=== PATIENT | male | born 1960 | race Caucasian/White ===

== ENCOUNTER → 2016-10-01 | Day surgery (SDC) | payer OTHER ==
[~2016-10-01] VITALS: Ht 189.2 cm; Wt 121.2 kg
[~2016-10-01] MED LIST: *ONDANSETRON 4 MG VIAL PERIprocedural Use ONLY ONE; *morphine SULFATE 8 MG/ML PERIprocedure ONLY ONE; ACETAMINOPHEN 1000 MG/100 ML VIAL IV SCH; ALPR.25 PO; ASPI81CH CHEW; BUPIVACAINE/EPINEPHRINE 0.5% PF 30 ML VIAL ONE; CHLORHEXIDINE GLUCONATE 2 % 1 PACK (2 CLOTHS) TOPICAL PRN; DO NOT ADM ANY ANTICOAGULANT DRUGS PRN; FAMOTIDINE 20 MG/2 ML VIAL ONE; INSULIN HUMAN REGULAR 1,000 UNITS/10 ML VIAL SQ PRN; LACTATED RINGER'S 1000 ML INJ 1,000 ML IV ONE; LACTATED RINGER'S 1000 ML IV PRN; METO25TA3 PO; METOPROLOL TARTRATE 25 MG TAB PO PRN; MIDAZOLAM HCL 2 MG/2 ML VIAL ONE; MORPHINE SULFATE 4 MG/ML INJ IV PRN; NEOSTIGMINE 3 MG/3 ML SYR IV ONE; ONDANSETRON HCL 4 MG/2 ML VIAL IV PRN; ONDANSETRON HCL 4 MG/2 ML VIAL IV PUSH ONE; PLAV75TA29 PO; PROPOFOL 200 MG/20 ML AMP IV ONE; ROSU40 PO; SODIUM CHLORID 0.9% 500 ML IV PRN; SODIUM CHLORIDE 0.9% FLUSH 10 ML FLUSH IV FLUSH PRN; SODIUM CHLORIDE 0.9% FLUSH 10 ML FLUSH IV FLUSH SCH; TRIA1SPR5 EACH NARE; VANCOMYCIN 500 MG/NS 100 ML IV ONE; ZANT150T2 PO; ePHEDrine/NS 25 MG/5 ML SYR IV ONE; fentaNYL CITRATE 250 MCG/5 ML AMP ONE; oxyCODONE/ACETAMINOPHEN 5 MG/325 MG TAB PO PRN
[2016-10-01 07:32] VITALS: BP 116/70; PULSE 64; RESP 20; TEMP 97.6; O2SAT 94
--- NOTE | 2016-10-01 10:45 | PD.OP ---
cc: Bashir Ramírez MD Operative Report Date of Surgery: Oct 01, 2016 Preoperative Diagnosis: Chronic cholecystitis and cholelithiasis Postoperative Diagnosis: Chronic cholecystitis and cholelithiasis Procedure: Laparoscopic cholecystectomy Anesthesia: Gen. endotracheal Surgeon: Bashir Ramírez Learning Engineer(s): PATRIA Wray Operation and Findings: Operative findings: The patient was found to have a very diseased, thick-walled gallbladder with small dark stones within its lumen. It was densely adherent to the gallbladder. There were filmy adhesions along its entire length. The cystic duct, and common bile duct were seen to be normal caliber. No other abnormalities were noted. Operative procedure: Patient was brought to the operating room and after satisfactory general endotracheal anesthesia was obtained, the abdomen was prepped and draped in the usual sterile fashion. 0.5% Marcaine with epinephrine was used to infiltrate the skin for local anesthesia. A small incision was made above the umbilicus and a 5 mm trocar was inserted into the peritoneal cavity under direct visualization. The abdomen was distended to 15 mmHg using carbon dioxide, after which the camera was reinserted and visceral injury inspected for, with none being identified. Under direct visualization a 12 port and a 5 port placed in the upper midline. The fundus of the gallbladder was identified and grasped. It was quite dense due to inflammation and bile. It was drained of approximately 20 mL's of relatively normal- appearing bile to allow better grasping. Once the gallbladder was grasped and was retracted superiorly over the right lobe of the liver. The adhesions were taken down without problem by just gentle traction. Abel's pouch was then grasped and retracted inferiorly and laterally, placing tension on the hepatoduodenal ligament. The cystic duct and cystic artery were then both dissected free to obtain the critical view. Once a critical view been obtained the cystic duct was controlled with 2 hemoclips and then divided near structures with the gallbladder using Harmonic scalpel. The cystic artery was via with a Harmonic scalpel. The gallbladder was then dissected free from the liver bed using the harmonic scalpel. Was placed within an Endo Catch bag and brought through the upper midline incision without problem where it was then sent for permanent pathology. Hemostasis was strictly assured. The area was irrigated thoroughly with saline and hemostasis again checked for and found be satisfactory. Due to the patient being on Plavix immediately postop, a use of Surgicel was placed within the gallbladder fossa and tucked into assure continued hemostasis. The carbon dioxide was then vented as completely as possible the atmosphere after checking the cystic duct cystic artery sites which were seen to be intact with no leakage of bile or blood. The trochars were were withdrawn. The 12 mm fascial defect closed with interrupted 0 Vicryl sutures and the skin closed with interrupted 4-0 PDS subcutaneous tumor stitches. Steri-Strips were applied the patient then awakened and taken from the operating room, in satisfactory condition, having tolerated procedure without problem. Estimated blood loss was less than 25 mL's. Instrument, sponge, and needle counts were reported as being correct 2 at the end of procedure. Bashir Ramírez MD Oct 01, 2016 10:45
[2016-10-01 12:15] VITALS: BP 142/78; PULSE 64; RESP 18; TEMP 97.6; O2SAT 95
== END | disposition home or self-care (01) ==
LOC: HSDC 06:44
PROVIDERS: ATTEND Surgery
DX: K80.10 Calculus of gallbladder with chronic cholecystitis without obstruction (principal); I25.10 Atherosclerotic heart disease of native coronary artery without angina pectoris; J44.9 Chronic obstructive pulmonary disease, unspecified; K21.9 Gastro-esophageal reflux disease without esophagitis; I10 Essential (primary) hypertension; E78.5 Hyperlipidemia, unspecified; I25.2 Old myocardial infarction; E66.9 Obesity, unspecified; Z68.33 Body mass index [BMI] 33.0-33.9, adult; Z95.5 Presence of coronary angioplasty implant and graft; Z79.82 Long term (current) use of aspirin; Z79.02 Long term (current) use of antithrombotics/antiplatelets; Z88.0 Allergy status to penicillin; Z88.1 Allergy status to other antibiotic agents; Z91.041 Radiographic dye allergy status; Z88.5 Allergy status to narcotic agent; Z95.1 Presence of aortocoronary bypass graft
CPT/HCPCS: 47562; 88304; J0131; J2250; J2270; J2405; J2710; J3010; J3370; J7120

== ENCOUNTER 2018-06-18 07:41 | Observation (INO) ==
[2018-06-18 07:46] VITALS: TEMP 98.4
[2018-06-18 08:20] LABS: Eos # (Auto) 0.1 th/mm3 (0.0-0.4); Eos % (Auto) 2.5 % (0.0-4.0); Hematocrit 45.4 % (39.0-51.0); Hemoglobin 15.5 gm/dL (13.0-17.0); Lymph # (Auto) 1.1 th/mm3 (1.0-4.8); Lymph % (Auto) 22.6 % (9.0-44.0); Mean Corpuscular HGB Conc 34.1 % (32.0-36.0); Mean Corpuscular Hemoglobin 30.8 pg (27.0-34.0); Mean Corpuscular Volume 90.3 fL (80.0-100.0); Mean Platelet Volume 6.7 fL (7.0-11.0); Mono # (Auto) 0.5 th/mm3 (0.0-0.9); Mono % (Auto) 11.2 % (0.0-8.0); Neut % (Auto) 62.7 % (16.0-70.0); Platelet Count 213 th/mm3 (150-450); Red Blood Count 5.03 mil/mm3 (4.50-5.90); Red Cell Distribution Width 13.6 % (11.6-17.2); White Blood Count 4.7 th/mm3 (4.0-11.0)
[2018-06-18 08:27] LABS: Prothrombin Time 10.1 sec (9.8-11.6)
[2018-06-18 08:31] LABS: Alanine Aminotransferase 34 U/L (12-78); Albumin 3.6 g/dL (3.4-5.0); Anion Gap 9 meq/L (5-15); Aspartate Aminotransferase 22 U/L (15-37); Blood Urea Nitrogen 15 mg/dL (7-18); Calcium 8.3 mg/dL (8.5-10.1); Chloride 110 meq/L (98-107); Glomerular Filtration Rate 88 mL/min (>89); Glucose,Random 102 mg/dL (74-106); Potassium 4.1 meq/L (3.5-5.1); Sodium 142 meq/L (136-145)
[2018-06-18 08:35] LABS: Alkaline Phosphatase 59 U/L (45-117); Total Protein 7.3 g/dL (6.4-8.2); Troponin I 0.03 ng/mL (0.02-0.05)
[2018-06-18 08:38] LABS: Creatine Kinase 99 U/L (39-308)
--- NOTE | 2018-06-18 08:54 | ED ---
HPI General Chief Complaint: Chest Pain Stated Complaint: Chest Pain Time Seen by Provider: 06/18/18 08:46 Source: patient Mode of arrival: ambulatory Limitations: no limitations History of Present Illness MD complaint: Reports chest pain STEMI Alert: No Onset (ago): week(s) (1) Duration: constant Pain location: Reports substernal Severity scale (1-10): 3 Quality: Reports similar to prior NM and other Pain radiation: Reports none Relieving factors: nothing Exacerbating factors: exertion Context: Reports other (Extensive cardiac history including a previous CABG followed by a stent.) Associated symptoms: Reports nausea and dyspnea Treatments prior to arrival chest pain: Reports aspirin Related Data Allergies Allergy/AdvReac Type Severity Reaction Status Date / Time azithromycin Allergy Severe RASH Unverified 12/10/16 17:44 codeine Allergy Severe TACHYCARDIA Unverified 12/10/16 17:44 erythromycin base Allergy Severe RASH Unverified 12/10/16 17:44 iodine Allergy Severe RASH Unverified 12/10/16 17:44 penicillin G Allergy Severe Anaphylaxis Unverified 12/10/16 17:44 potassium iodide Allergy Severe RASH Unverified 12/10/16 17:44 povidone-iodine Allergy Severe RASH Unverified 12/10/16 17:44 sodium iodide Allergy Severe RASH Unverified 12/10/16 17:44 sodium iodide Allergy Severe RASH Unverified 12/10/16 17:44 *MDRO Multi-Drug Resistant AdvReac Unknown MRSA Uncoded 10/01/16 07:08 Organism Review of Systems ROS: all other systems reviewed are negative [facility] Medical History Medical History Anxiety (Acute) CAD (coronary artery disease) (Acute) GERD (gastroesophageal reflux disease) (Acute) Hyperlipidemia (Acute) Surgical History Surgical History Hx of CABG (Acute) Social History Social History Substance History: No History of Abuse Smoking Status: Never smoker How Often Do You Have a Drink Containing Alcohol: Never Recent Travel in [facility] within the Last 8 Weeks: No Recent Out of Country Travel within the Last 8 Weeks: No Exam Const General: cooperative, healthy appearing and comfortable Orientation: alert, awake and oriented x3 HENMT Head: normal to inspection, normocephalic and atraumatic Eyes General: appearance normal, both eyes and all related structures Conjunctivae: conjunctivae normal Sclera: sclerae normal EOM: EOM intact bilaterally Neck Neck: normal visual inspection and full ROM Chest Chest: normal inspection of the chest Resp Effort & Inspection: normal respiratory effort and able to speak in complete sentences Auscultation: clear to auscultation bilaterally Cardio Rate: regular rate Rhythm: regular rhythm Heart Sounds: S1 normal and S2 normal GI Inspection: normal to inspection Palpation: soft Back/Spine/Pelvis Cervical Spine: cervical ROM normal Thoracic/Lumbar Spine: thoraco-lumbar ROM normal Skin General: no rashes or lesions noted, turgor normal and dry skin Neuro General: alert, awake, oriented x3, moves all extremities and CN's II-XI intact bilaterally Extrem General: normal to inspection, full ROM and no pedal edema Psych Appearance: grossly normal Mental Status: mental status grossly normal Speech and Movement: speech and movement normal Mood: congruent mood Affect: normal affect Attitude: cooperative Thought Process: normal Thought Content: normal Judgment: judgment good Course Initial Documented Vital Signs Temperature 98.4 F 06/18/18 07:44 Pulse Rate 71 06/18/18 07:44 Respiratory Rate 16 06/18/18 07:44 Blood Pressure 141/76 H 06/18/18 07:44 Pulse Oximetry 96 06/18/18 07:44 Last Documented Vital Signs Temperature 98.4 F 06/18/18 07:44 Pulse Rate 71 06/18/18 07:44 Respiratory Rate 16 06/18/18 07:44 Blood Pressure 141/76 H 06/18/18 07:44 Pulse Oximetry 96 06/18/18 07:44 Medical Decision Making [facility] Narrative Medical decision making narrative: This patient presents with a one-week history of substernal chest pain which is exacerbated by exertion. It is occasionally associated with shortness of breath and nausea. He reports an extensive cardiac history including a previous CABG and a previous stent. He states that the chest pain that he is having now is similar to the chest pain that he had prior to stenting. In addition, he reports occasional choking sensations. The patient will be admitted to the chest pain center for further evaluation and treatment. Medical Screen Exam Complete: Yes Emergency Medical Condition: Yes Differential Diagnosis Differential Diagnosis: Differential diagnosis of chest pain includes but is not limited to musculoskeletal pain, pulmonary embolism, acute coronary syndrome , pneumonia, pleurisy Lab Data Lab results reviewed: Yes I reviewed the patient's lab results. Result diagrams: 06/18/18 08:02 06/18/18 08:02 Lab Results 06/18/18 06/18/18 06/18/18 Range/Units 08:02 08:02 08:02 WBC 4.7 (4.0-11.0) th/mm3 RBC 5.03 (4.50-5.90) mil/mm3 Hgb 15.5 (13.0-17.0) gm/dL Hct 45.4 (39.0-51.0) % MCV 90.3 (80.0-100.0) fL MCH 30.8 (27.0-34.0) pg MCHC 34.1 (32.0-36.0) % RDW 13.6 (11.6-17.2) % Plt Count 213 (150-450) th/mm3 MPV 6.7 L (7.0-11.0) fL Neut % (Auto) 62.7 (16.0-70.0) % Lymph % (Auto) 22.6 (9.0-44.0) % Villalba % (Auto) 11.2 H (0.0-8.0) % Eos % (Auto) 2.5 (0.0-4.0) % Baso % (Auto) 1.0 (0.0-2.0) % Neut # (Auto) 3.0 (1.8-7.7) th/mm3 Lymph # (Auto) 1.1 (1.0-4.8) th/mm3 Villalba # (Auto) 0.5 (0.0-0.9) th/mm3 Eos # (Auto) 0.1 (0.0-0.4) th/mm3 Baso # (Auto) 0.0 (0.0-0.2) th/mm3 WBC Differential . Differential Comment Auto diff final PT 10.1 (9.8-11.6) sec INR 1.0 Ratio APTT 27.0 (23.4-31.7) sec Sodium 142 (136-145) meq/L Potassium 4.1 (3.5-5.1) meq/L Chloride 110 H (98-107) meq/L Carbon Dioxide 23.0 (21.0-32.0) meq/L Anion Gap 9 (5-15) meq/L BUN 15 (7-18) mg/dL Creatinine 0.89 (0.60-1.30) mg/dL Estimated GFR 88 L (>89) mL/min Random Glucose 102 (74-106) mg/dL Calcium 8.3 L (8.5-10.1) mg/dL Total Bilirubin 0.5 (0.2-1.0) mg/dL AST 22 (15-37) U/L ALT 34 (12-78) U/L Alkaline Phosphatase 59 (45-117) U/L Total Creatine Kinase 99 (39-308) U/L Troponin I 0.03 (0.02-0.05) ng/mL Total Protein 7.3 (6.4-8.2) g/dL Albumin 3.6 (3.4-5.0) g/dL Imaging Data Radiologist's impression: Chest X-Ray 06/18/18 08:59 CONCLUSION: Status post CABG. Lungs remain clear. ECG Data EKG Prior to Arrival: No Attestation: I personally reviewed and interpreted this ECG as follows: (EKG shows a sinus rhythm. No acute STT wave changes. Multiple unifocal PVCs. Inferior Q waves compatible with previous NM.) Discharge Plan Discharge Disposition Patient Disposition: ED Admit(ED Internal Use Only) Discharge Order Discharge Orders: ED Use Only Admit Order (Routine); Ordered 06/18/18 Ordered By: Fernanda Lira Discharge Details Diagnosis: Chest pain Physicians Team ED Provider: Fernanda Lira Primary Care Provider: Sergio Barrientos Attending Provider: Shravan Solis Status ED Status: Admitted Observation Patient
--- NOTE | 2018-06-18 09:23 | XR ---
EXAM DATE: 06/18/2018 9:15 AM EST AGE/SEX: 57 years / Male INDICATIONS: . Shortness of breath and burning in chest. CLINICAL DATA: This is the patient's initial encounter. Patient reports that signs and symptoms have been present for 1 week and indicates a pain score of 3/10. MEDICAL/SURGICAL HISTORY: None. Appendectomy. Cholecystectomy. CABG. Heart stent. COMPARISON: [facility] [place] 2V PA&LAT, 11/07/2017. . FINDINGS: AP and lateral views of the chest demonstrate the lungs to be symmetrically aerated without evidence of mass, infiltrate or effusion. Status post CABG. The cardiomediastinal contours are unremarkable. Osseous structures are intact. CONCLUSION: Status post CABG. Lungs remain clear. Electronically signed by: Raymond Dwyer MD Board Certified Radiologist 06/18/2018 9:22 AM EST
--- NOTE | 2018-06-18 12:14 | P.HPCA ---
History of Present Illness Primary Care Physician: Sergio Barrientos MD Chief Complaint: Chest pain History of Present Illness: This is a 57-year-old male history of CAD having a four-vessel bypass in 2001 and a stent to vein graft to diagonal in 2016, hypertension, and hyperlipidemia that presents to ED via private vehicle with complaint of intermittent chest discomforts for the past week. States he has been having them at least once a day. States they have occurred always with activity until this morning which was the first episode that occurred while essentially at rest. He was getting ready for work. Prior to that with basically walking he would develop a burning discomfort in the substernal region. He would stop walking and the discomfort would resolve within a couple minutes. On some occasions when he was start walking again the discomfort would recur and follow the same cycle. He was short of breath with the symptoms. Rarely was nauseous. Denied diaphoresis. He states he had a similar type of burning discomfort when needing stents in 2016 however that was higher in left side of his chest. He states he continues to follow Dr. Diaz. Last seen over the summer. States he was being seen for fast heart rate and wore a Holter monitor with Dr. Annalisa Gilliland 's office that revealed what he believes was atrial fibrillation was placed on metoprolol. No states he had a stress test on a treadmill and that was okay. Denies recent illness. Denies fevers or chills. Currently has no discomfort in his chest. Past medical history: CAD four-vessel bypass 2001 and stent to the vein graft to the diagonal as a non-STEMI in August 2015. Hypertension and hyperlipidemia. Denies diabetes. Family history: There is multiple family members with CAD. Social history: Non-smoker. Denies alcohol or illicit drug use. He is a technology lab teacher. - Diagnosis (1) Chest pain (2) CAD (coronary artery disease) (3) History of heart artery stent (4) Status post aorto-coronary artery bypass graft (5) Hypertension (6) Hyperlipidemia Review of Systems General: Patient denies fevers, chills, and recent travel. HEENT: Patient denies headache, sore throat, difficulty swallowing. Cardiovascular: Has the chest discomfort as mentioned above. Denies sensation of heart beating rapidly or irregularly. No syncope. Denies diaphoresis. Respiratory: He was short of breath. Denies inspirational chest discomfort. Denies coughing wheezing or hemoptysis. GI: Patient denies nausea, vomiting, diarrhea, abdominal pain, bloody stools. Musculoskeletal: Patient denies joint pain or edema. Denies calf pain or edema. Neurovascular: Patient denies numbness, tingling, weakness in extremities. Denies headache. Endocrine: Denies polyuria and polydipsia. Hematologic: Denies easy bruising. Skin: Denies rash or itching. PMFSH - History History Provided By: Patient - Medical History Medical History: Medical History (Last Updated 06/18/18 @ 10:37 by [employer]) High cholesterol Kidney stones Anxiety CAD (coronary artery disease) GERD (gastroesophageal reflux disease) Hyperlipidemia - Surgical History Surgical History: Surgical History (Last Updated 06/18/18 @ 10:37 by [employer]) Hx of hernia repair S/P CABG x 4 Stented coronary artery Hx of CABG - Tobacco History Second Hand Smoke Exposure: No Tobacco Use In Past 30 Days: No Smoking Status: Former smoker Tobacco Type: Cigars - Alcohol History How Often Do You Have a Drink Containing Alcohol: Monthly or less - Substance Use History Substance History: Unable to Obtain - Travel History Recent Travel in the [place] Within the Last 8 Weeks: No Recent Travel Out of the Country Within the Last 8 Weeks: No - Immunization History Tetanus Immunization: Unable to Assess Medications and Allergies Active Medications: Active Medications Aspirin (Aspirin) 325 mg PO DAILY TONI Sodium Chloride (Ns Flush) 2 ml IV.FLUSH BID TONI Sodium Chloride (Ns Flush) 2 ml IV.FLUSH PRN PRN PRN Reason: FLUSH AFTER USING IV ACCESS Allergies Allergy/AdvReac Type Severity Reaction Status Date / Time azithromycin Allergy Severe RASH Verified 06/18/18 11:20 codeine Allergy Severe TACHYCARDIA Verified 06/18/18 11:20 erythromycin base Allergy Severe RASH Verified 06/18/18 11:20 iodine Allergy Severe RASH Verified 06/18/18 11:20 penicillin G Allergy Severe Anaphylaxis Verified 06/18/18 11:20 potassium iodide Allergy Severe RASH Verified 06/18/18 11:20 povidone-iodine Allergy Severe RASH Verified 06/18/18 11:20 sodium iodide Allergy Severe RASH Verified 06/18/18 11:20 sodium iodide Allergy Severe RASH Verified 06/18/18 11:20 *MDRO Multi-Drug Resistant AdvReac Unknown MRSA Uncoded 06/18/18 11:20 Organism Home Medications Medication Instructions Recorded Confirmed Type alprazolam [Xanax] 0.5 mg PO BID 06/18/18 06/18/18 History clopidogrel [Plavix] 75 mg PO DAILY 06/18/18 06/18/18 History metoprolol tartrate 25 mg PO DAILY 06/18/18 06/18/18 History ranitidine HCl [Zantac] 150 mg PO BID 06/18/18 06/18/18 History rosuvastatin [Crestor] 40 mg PO HS 06/18/18 06/18/18 History Exam Vital signs: Vital Signs 06/18/18 07:44 06/18/18 10:15 06/18/18 11:48 Temperature 98.4 F Pulse Rate 71 54 L Respiratory Rate 16 19 Blood Pressure 141/76 H 124/68 Pulse Oximetry 96 98 98 Intake & Output 06/17/18 06/18/18 06/18/18 18:59 06:59 18:59 Weight 122.47 kg Narrative: GENERAL: This is a well-nourished, well-developed patient, in no apparent distress. Patient speaks in clear complete sentences. Patient is pleasant. HEENT: Head is atraumatic and normocephalic. Neck is supple without lymphadenopathy and trachea is midline. No JVD or carotid bruits. CARDIOVASCULAR: Regular rate and rhythm without murmurs, gallops, or rubs. RESPIRATORY: Clear to auscultation. Breath sounds equal bilaterally. No wheezes , rales, or rhonchi. Chest wall is nontender. No use of accessory muscles. GASTROINTESTINAL: Abdomen is nontender, nondistended. Abdomen soft. No obvious pulsatile mass or bruit. No CVA tenderness. Strong femoral pulses bilaterally. Normal bowel sounds in all quadrants. MUSCULOSKELETAL: Patient is moving upper and lower extremities freely. No calf tenderness or edema, no Homans sign. Strong pulses in upper and lower extremities. NEUROLOGICAL: Patient is alert and oriented. Cranial nerves 2-12 are grossly intact. No focal deficits and speech is clear. SKIN: No rash and turgor is normal. Results 06/18/18 08:02 06/18/18 08:02 Cardiac Enzymes 06/18/18 Range/Units 08:02 AST 22 (15-37) U/L Troponin I 0.03 (0.02-0.05) ng/mL Coagulation 06/18/18 Range/Units 08:02 PT 10.1 (9.8-11.6) sec APTT 27.0 (23.4-31.7) sec CBC 06/18/18 Range/Units 08:02 WBC 4.7 (4.0-11.0) th/mm3 RBC 5.03 (4.50-5.90) mil/mm3 Hgb 15.5 (13.0-17.0) gm/dL Hct 45.4 (39.0-51.0) % Plt Count 213 (150-450) th/mm3 Neut # (Auto) 3.0 (1.8-7.7) th/mm3 Lymph # (Auto) 1.1 (1.0-4.8) th/mm3 Simpson # (Auto) 0.5 (0.0-0.9) th/mm3 Eos # (Auto) 0.1 (0.0-0.4) th/mm3 Baso # (Auto) 0.0 (0.0-0.2) th/mm3 Comprehensive Metabolic Panel 06/18/18 Range/Units 08:02 Sodium 142 (136-145) meq/L Potassium 4.1 (3.5-5.1) meq/L Chloride 110 H (98-107) meq/L Carbon Dioxide 23.0 (21.0-32.0) meq/L BUN 15 (7-18) mg/dL Creatinine 0.89 (0.60-1.30) mg/dL Calcium 8.3 L (8.5-10.1) mg/dL AST 22 (15-37) U/L ALT 34 (12-78) U/L Alkaline Phosphatase 59 (45-117) U/L Total Protein 7.3 (6.4-8.2) g/dL Albumin 3.6 (3.4-5.0) g/dL Intake and Output 06/17/18 06/18/18 06/18/18 22:59 06:59 14:59 Other: Weight 122.47 kg Patient Weight 06/19/18 06:59 Weight 122.47 kg - Imaging and Cardiology Imaging: Impressions Chest X-Ray 06/18/18 08:59 CONCLUSION: Status post CABG. Lungs remain clear. EKG interpretations - EKG EKG shows: sinus rhythm (Initial EKG is a sinus rhythm and sinus bradycardia. Initial EKG has PVCs. No significant ST segment depressions or elevations.) Caprini VTE Risk Assessment Caprini VTE Risk Assessment: No/Low Risk (score <= 1) Caprini Risk Assessment Model: Point Value = 1 Point Value = 2 Point Value = 3 Point Value = 5 Age 41-60 Minor surgery BMI > 25 kg/m2 Swollen legs Varicose veins or History of unexplained or recurrent spontaneous Oral contraceptives or hormone replacement Sepsis (< 1 month) Serious lung disease, including pneumonia (< 1 month) Abnormal pulmonary function Acute myocardial infarction Congestive heart failure (< 1 month) History of inflammatory bowel disease Medical patient at bed rest Age 61-74 Arthroscopic surgery Major open surgery (> 45 min) Laparoscopic surgery (> 45 min) Malignancy Confined to bed (> 72 hours) Immobilizing plaster cast Central venous access Age >= 75 History of VTE Family history of VTE Factor V Leiden Prothrombin [id number] Lupus anticoagulant Anticardiolipin antibodies Elevated serum homocysteine Heparin-induced thrombocytopenia Other congenital or acquired thrombophilia Stroke (< 1 month) Elective arthroplasty Hip, pelvis, or leg fracture Acute spinal cord injury (< 1 month) Prophylaxis Regimen: Total Risk Factor Score Risk Level Prophylaxis Regimen 0-1 Low Early ambulation 2 Moderate Order ONE of the following: *Sequential Compression Device (SCD) *Heparin 5000 units SQ BID 3-4 Higher Order ONE of the following medications: *Heparin 5000 units SQ TID *Enoxaparin/Lovenox 40 mg SQ daily (WT < 150 kg, CrCl > 30 mL/min) *Enoxaparin/Lovenox 30 mg SQ daily (WT < 150 kg, CrCl > 10-29 mL/min) *Enoxaparin/Lovenox 30 mg SQ BID (WT < 150 kg, CrCl > 30 mL/min) AND/OR *Sequential Compression Device (SCD) 5 or more Highest Order ONE of the following medications: *Heparin 5000 units SQ TID (Preferred with Epidurals) *Enoxaparin/Lovenox 40 mg SQ daily (WT < 150 kg, CrCl > 30 mL/min) *Enoxaparin/Lovenox 30 mg SQ daily (WT < 150 kg, CrCl > 10-29 mL/min) *Enoxaparin/Lovenox 30 mg SQ BID (WT < 150 kg, CrCl > 30 mL/min) AND *Sequential Compression Device (SCD) Assessment and Plan - Assessment (1) Chest pain Code(s): R07.9 - Chest pain, unspecified Status: Acute (2) CAD (coronary artery disease) Code(s): I25.10 - Atherosclerotic heart disease of [place] coronary artery without angina pectoris Status: Acute (3) History of heart artery stent Code(s): Z95.5 - Presence of coronary angioplasty implant and graft Status: Acute (4) Status post aorto-coronary artery bypass graft Code(s): Z95.1 - Presence of aortocoronary bypass graft Status: Acute (5) Hypertension Code(s): I10 - Essential (primary) hypertension Status: Acute (6) Hyperlipidemia Code(s): E78.5 - Hyperlipidemia, unspecified Status: Acute - Plan * Chest pain: Patient will have serial cardiac enzymes and EKGs for ruling out purposes. He has been seen by Dr. Solis of cardiology in the chest pain center. If he rules out he will likely have a Lexiscan. He would be discharged home with instructions to follow-up with his glass designer and PCP if Lexiscan is nonischemic. He should return to ED for interval issues. * History of CAD: Patient has had stent in 2016 and four-vessel bypass in 2001. To be reassessed with stress testing. He will need to follow-up with his glass designer. * Hypertension: Continue medication. * Hyperlipidemia: Continue medication. Patient is stable at this time. He is agreeable to this plan. (1) Chest pain Qualifiers: Chest pain type: unspecified Qualified Code(s): R07.9 - Chest pain, unspecified
--- NOTE | 2018-06-18 12:15 | P.PNCA ---
Subjective Interval history: Patient was seen and evaluated by the physician invas tech and then reviewed and reexamined in concert together. History is documented in his dictation and no additions are necessary at this time. This patient presents in a pattern suggestive of recurrent exercise-induced angina with a known history of CABG and stent placement. He will be evaluated and ruled out per chest pain center protocol and if negative will be evaluated with a nuclear stress test. Patient is fully cognizant of need for this evaluation. Medications and Allergies Active Medications: Active Medications Aspirin (Aspirin) 325 mg PO DAILY TONI Sodium Chloride (Ns Flush) 2 ml IV.FLUSH BID TONI Sodium Chloride (Ns Flush) 2 ml IV.FLUSH PRN PRN PRN Reason: FLUSH AFTER USING IV ACCESS Allergies Allergy/AdvReac Type Severity Reaction Status Date / Time azithromycin Allergy Severe RASH Verified 06/18/18 11:20 codeine Allergy Severe TACHYCARDIA Verified 06/18/18 11:20 erythromycin base Allergy Severe RASH Verified 06/18/18 11:20 iodine Allergy Severe RASH Verified 06/18/18 11:20 penicillin G Allergy Severe Anaphylaxis Verified 06/18/18 11:20 potassium iodide Allergy Severe RASH Verified 06/18/18 11:20 povidone-iodine Allergy Severe RASH Verified 06/18/18 11:20 sodium iodide Allergy Severe RASH Verified 06/18/18 11:20 sodium iodide Allergy Severe RASH Verified 06/18/18 11:20 *MDRO Multi-Drug Resistant AdvReac Unknown MRSA Uncoded 06/18/18 11:20 Organism Home Medications Medication Instructions Recorded Confirmed Type alprazolam [Xanax] 0.5 mg PO BID 06/18/18 06/18/18 History clopidogrel [Plavix] 75 mg PO DAILY 06/18/18 06/18/18 History metoprolol tartrate 25 mg PO DAILY 06/18/18 06/18/18 History ranitidine HCl [Zantac] 150 mg PO BID 06/18/18 06/18/18 History rosuvastatin [Crestor] 40 mg PO HS 06/18/18 06/18/18 History Physical Exam Vital signs: Vital Signs 06/18/18 07:44 06/18/18 10:15 06/18/18 11:48 Temperature 98.4 F Pulse Rate 71 54 L Respiratory Rate 16 19 Blood Pressure 141/76 H 124/68 Pulse Oximetry 96 98 98 Intake & Output 06/17/18 06/18/18 06/18/18 18:59 06:59 18:59 Weight 122.47 kg Narrative: The examination is accurate as recorded by the physician invas tech. The following is reiterated here. Skin small lesion on right forehead previously treated for known skin cancer Neck supple no JVD masses nodes or bruits Chest is clear to auscultation with no rales wheezes rhonchi Cardiovascular the rhythm is regular there are no gallops rubs or murmurs Results 06/18/18 08:02 06/18/18 08:02 Cardiac Enzymes 06/18/18 Range/Units 08:02 AST 22 (15-37) U/L Troponin I 0.03 (0.02-0.05) ng/mL Coagulation 06/18/18 Range/Units 08:02 PT 10.1 (9.8-11.6) sec APTT 27.0 (23.4-31.7) sec CBC 06/18/18 Range/Units 08:02 WBC 4.7 (4.0-11.0) th/mm3 RBC 5.03 (4.50-5.90) mil/mm3 Hgb 15.5 (13.0-17.0) gm/dL Hct 45.4 (39.0-51.0) % Plt Count 213 (150-450) th/mm3 Neut # (Auto) 3.0 (1.8-7.7) th/mm3 Lymph # (Auto) 1.1 (1.0-4.8) th/mm3 [place] # (Auto) 0.5 (0.0-0.9) th/mm3 Eos # (Auto) 0.1 (0.0-0.4) th/mm3 Baso # (Auto) 0.0 (0.0-0.2) th/mm3 Comprehensive Metabolic Panel 06/18/18 Range/Units 08:02 Sodium 142 (136-145) meq/L Potassium 4.1 (3.5-5.1) meq/L Chloride 110 H (98-107) meq/L Carbon Dioxide 23.0 (21.0-32.0) meq/L BUN 15 (7-18) mg/dL Creatinine 0.89 (0.60-1.30) mg/dL Calcium 8.3 L (8.5-10.1) mg/dL AST 22 (15-37) U/L ALT 34 (12-78) U/L Alkaline Phosphatase 59 (45-117) U/L Total Protein 7.3 (6.4-8.2) g/dL Albumin 3.6 (3.4-5.0) g/dL Intake and Output 06/17/18 06/18/18 06/18/18 22:59 06:59 14:59 Other: Weight 122.47 kg Patient Weight 06/19/18 06:59 Weight 122.47 kg - Imaging and Cardiology Imaging: Impressions Chest X-Ray 06/18/18 08:59 CONCLUSION: Status post CABG. Lungs remain clear. Assessment and Plan - Plan Patient will be ruled out for ACS and then evaluated with a nuclear stress test. If positive he will be admitted for further evaluation and probable catheterization. If negative he will be discharged further follow-up on an outpatient basis by Dr. Barrientos his primary care physician. Code Status: Full code Discussed Condition With: Considerations and options were discussed with the patient - Attending Attestation I attest to the fact that the evaluation and intervention is appropriate for the patients presentation.
--- NOTE | 2018-06-18 12:24 | ECG ---
Date Performed: 06/18/2018 Time Performed: 07:53:41 PTAGE: 57 years EKG: Sinus rhythm WITH OCCASIONAL VENTRICULAR PREMATURE COMPLEXES INFERIOR MYOCARDIAL INFARCTION ABNORMAL ECG Slight i ncrease in ectopy but otherwise no significant change PREVIOUS TRACING : 11/06/2017 20.02 DOCTOR: Shravan Solis Interpretating Date/Time 06/19/2018 06:47:08
[2018-06-18 12:33] LABS: Troponin I 0.05 ng/mL (0.02-0.05)
[2018-06-18] MEDS ORDERED: Regadenoson Inj 0.4 MG/5 ML Syringe IV.PUSH ONE (13:43)
[2018-06-18 15:22] VITALS: BP 130/80; PULSE 56; RESP 16; O2SAT 97
--- NOTE | 2018-06-18 17:18 | NM ---
EXAM DATE: 06/18/2018 5:11 PM EST AGE/SEX: 57 years / Male INDICATIONS:Angina. Coronary artery disease CLINICAL DATA: This is the patient's initial encounter. Patient reports that signs and symptoms have been present for 1 day and indicates a pain score of 3/10. MEDICAL/SURGICAL HISTORY: Hypertension. Coronary artery stent. Inguinal hernia repair. COMPARISON: No prior exams available for comparison. DOSE: 11 mCi Tc 99m Myoview at rest 35 mCi [id number] at stress 0.4 mg Lexiscan STRESS SYMPTOMS: Headache. EJECTION FRACTION: 38 % TECHNIQUE: The patient underwent pharmacologic stress with infusion of prescribed dose. Continuous ECG tracing was monitored during stress. Gated SPECT imaging was performed after stress and conventi onal SPECT imaging was performed at rest. The examination was performed on a SPECT/CT scanner, both attenuation and non-corrected datasets were reviewed. FINDINGS: Distribution: The maximum perfused segment at stress is in the septal wall. Perfusion Study: Small fixed perfusion defects in the inferoseptal region and apex Gated Study: There are intact wall motion and wall thickening without hypokinetic or dyskinetic segm ents. The ejection fraction is calculated at 38%. RISK CATEGORY: Intermediate (1-3 % Annual Mortality Rate) CONCLUSION: 1. Fixed perfusion defects as above characteristic of prior infarct. No definite reversibility to cast ggest ischemia. 2. Mild global hypokinesis with ejection fraction 38%. Electronically signed by: Alvaro Iniguez MD Board Certified Radiologist 06/18/2018 5:16 PM EST
[2018-06-19] MEDS ORDERED: Aspirin 325 MG Tablet PO SCH (09:00)
--- NOTE | 2018-06-19 10:30 | ECG ---
Date Performed: 06/18/2018 Time Performed: 11:20:30 PTAGE: 57 years EKG: SINUS BRADYCARDIA INFERIOR MYOCARDIAL INFARCTION ABNORMAL ECG No significant change PREVIOUS TRACING : 06/18/2018 07.53 DOCTOR: Shravan Solis Interpretating Date/Time 06/19/2018 10:28:51
--- NOTE | 2018-06-19 10:30 | ECG ---
Date Performed: 06/18/2018 Time Performed: 15:19:46 PTAGE: 57 years EKG: SINUS BRADYCARDIA INFERIOR MYOCARDIAL INFARCTION ABNORMAL ECG No significant change PREVIOUS TRACING : 06/18/2018 11.20 DOCTOR: Shravan Solis Interpretating Date/Time 06/19/2018 10:28:39
--- NOTE | 2018-06-19 10:32 | TR ---
Date Performed: 06/18/2018 Time Performed: 16:11:37 DOCTOR: Shravan Solis DRUG LIST: CLINICAL HISTORY: REASON FOR TEST: REASON FOR ENDING: OBSERVATION: CONCLUSION: Lexiscan stress test was performed under standard four minute protocol. Radionuclide was injected one minute prior to ending the test. No electrocardiographic abormalities were present to suggest ischemia. Nuclear imaging and interpretation are pending. COMMENTS:
== END 2018-06-18 18:08 | disposition home or self-care (01) ==
LOC: NEPK 07:41 → NEDA 07:41 → NEPFCDU 17:04
PROVIDERS: ADMIT Internal Medicine Interventional Cardiology; ATTEND Internal Medicine Interventional Cardiology
DX: Z87.891 Personal history of nicotine dependence; Z95.5 Presence of coronary angioplasty implant and graft; Z85.828 Personal history of other malignant neoplasm of skin; E78.5 Hyperlipidemia, unspecified; F41.9 Anxiety disorder, unspecified; R07.9 Chest pain, unspecified; I10 Essential (primary) hypertension; I25.2 Old myocardial infarction; I25.119 Atherosclerotic heart disease of native coronary artery with unspecified angina pectoris; R06.02 Shortness of breath; K21.9 Gastro-esophageal reflux disease without esophagitis
CPT/HCPCS: 71020; 71046; 78452; 80053; 82550; 84484; 85025; 85610; 85730; 93005; 93017; 99285; A9502; G0378; J2785; Q9969